=== PATIENT | male | born 1970 | race Caucasian/White ===

== ENCOUNTER → 2021-02-22 | Outpatient (REF) ==
[~2021-02-22] MED LIST: ACET500C PO; CYMB60CA3 PO; FLON0.05; GABA-282 PO; HYDR-3716 PO; LORA10TA2 PO; NADO20TA2 PO; OMEP20CA3 PO; PREG50CA PO; TOPA25TA PO; VALI5TAB PO; VICO5TAB16 PO
== END ==
LOC: M PLAIMG 11:03
PROVIDERS: ATTEND Internal Medicine
DX: M25.551 Pain in right hip (principal); M54.9 Dorsalgia, unspecified

== ENCOUNTER → 2021-06-08 | Outpatient (REF) ==
--- NOTE | 2021-06-08 12:10 | REP ---
INDICATION: AGE-RELATED OSTEOPOROSIS W/O CURRENT PATHOLOGICAL FRACTURE COMPARISON: None. TECHNIQUE: AP and frog-lateral views of the left hip FINDINGS: Generalized age-related changes include subtle increased sclerosis to the acetabulum with minimal joint space narrowing. No further overt osteoarthritic or significant degenerative changes are appreciated. No evidence for acute or healed injury. Surrounding soft tissues are normal. IMPRESSION: Mild generalized age-related changes. <Electronically signed by Clif Hutson > 06/08/21 [id number]
--- NOTE | 2021-06-08 12:16 | REP ---
INDICATION: AGE-RELATED OSTEOPOROSIS W/O CURRENT PATHOLOGICAL FRACTURE COMPARISON: 02/22/2021 TECHNIQUE: AP, lateral, coned-down views of the lumbar spine. FINDINGS: Prior laminectomy and posterior fixation at L3-L5. Moderate to advanced multilevel degenerative changes include endplate sclerosis, osteophytosis, facet hypertrophy and disc space narrowing remains stable. No acute fracture/compression injury or subluxation. IMPRESSION: 1. No acute fracture / compression injury or subluxation. 2. Stable degenerative and postsurgical changes. <Electronically signed by Clif Hutson > 06/08/21 [id number]
== END ==
LOC: M PLAIMG 11:25
PROVIDERS: ATTEND Internal Medicine
DX: M81.0 Age-related osteoporosis without current pathological fracture (principal)

== ENCOUNTER → 2022-04-24 | Outpatient (CLI) | payer OTHER | LOC: M LABSMTC 10:55 | PROVIDERS: ATTEND Neurological Surgery | DX: Z01.812 Encounter for preprocedural laboratory examination (principal); M48.02 Spinal stenosis, cervical region; G99.2 Myelopathy in diseases classified elsewhere; Z20.822 Contact with and (suspected) exposure to COVID-19 ==

== ENCOUNTER → 2022-08-17 | Outpatient (CLI) | payer OTHER | LOC: M LABSMTC 11:33 | PROVIDERS: ATTEND Neurological Surgery | DX: Z11.52 Encounter for screening for COVID-19 (principal) ==